=== PATIENT | female | born 1995 | race Caucasian/White ===

== ENCOUNTER 2023-10-29 06:58 | Emergency (ER) | payer MEDICAID, OTHER ==
[~2023-10-29] VITALS: Ht 157.5 cm; Wt 60.0 kg
[2023-10-29 07:04] VITALS: O2SAT 99
[2023-10-29] MEDS: KETOROLAC 30MG/ML VIAL IV STA (07:05)
[2023-10-29 08:31] LABS: DIFFERENTIAL COMMENT 1; HEMATOCRIT. 39.1 % (36.0-48.0); HEMOGLOBIN. 13.1 g/dL (12.0-16.0); MEAN CORPUSCULAR HGB CONC 33.5 g/dL (31.0-37.0); MEAN CORPUSCULAR VOLUME 92.6 fL (81.0-99.0); MEAN PLATELET VOLUME 8.6 fl (7.4-10.4); PLATELET 206 x1000/uL (130-400); RED BLOOD CELL COUNT 4.22 mill/uL (4.2-5.4); RED CELL DISTRIBUTION WIDTH 13.7 % (11.6-14.6)
[2023-10-29 08:36] LABS: CHLORIDE 107 mEq/L (98-107); POTASSIUM 3.3 mEq/L (3.5-5.1); SODIUM 141 mEq/L (136-145)
[2023-10-29 08:37] LABS: CARBON DIOXIDE 26 mEq/L (21-32)
[2023-10-29 08:38] LABS: CALCIUM 9.1 mg/dL (8.7-10.4)
[2023-10-29 08:42] LABS: CREATININE 0.5 mg/dL (0.6-1.0); GLUCOSE 102 mg/dL (70-105); UREA NITROGEN BLOOD 7 mg/dL (9-23)
[2023-10-29 08:44] LABS: PARTIAL THROMBOPLASTIN TIME 26.1 sec (23.4-31.0); PROTHROMBIN TIME 11.4 sec (9.6-11.0)
[2023-10-29 08:48] LABS: CLARITY URINE CLEAR (CLEAR); COLOR URINE YELLOW (YELLOW); GLUCOSE URINE NEGATIVE (NEGATIVE); KETONES URINE NEGATIVE (NEGATIVE); LEUKOCYTE ESTERASE URINE TRACE (NEGATIVE); NITRITE URINE NEGATIVE (NEGATIVE); OCCULT BLOOD URINE 3+ (NEGATIVE); PH URINE 6.5 (4.5-8.0); PROTEIN URINE TRACE (NEGATIVE); SPECIFIC GRAVITY URINE 1.015 (1.005-1.030)
[2023-10-29 08:48] LABS: TROPONIN I HIGH SENSITIVITY < 4 ng/L (3.0-34)
[2023-10-29 08:52] LABS: HCG SCREEN NEGATIVE
[2023-10-29 09:28] LABS: BACTERIA URINE 1+; SQUAMOUS EPITHELIAL CELL URINE 1+ /lpf (RARE/1+); YEAST URINE NONE SEEN
[2023-10-29 10:28] LABS: PLATELET ESTIMATE NORMAL
[2023-10-29] MEDS: MORPHINE SULFATE 4 MG/ML INJ (FOR IV/IM USE) IV ONE (11:04)
[2023-10-29] MEDS: ONDANSETRON HCL 4MG/2ML INJ IV ONE (11:28)
[2023-10-29] MEDS ORDERED: LIDO1ADH23 TP (12:34)
[2023-10-29] MEDS ORDERED: IBUP-2030 MT (12:34)
[2023-10-29] MEDS ORDERED: ACET-2708 MT (12:34)
[2023-10-29 12:53] VITALS: BP 120/63; PULSE 83; RESP 20; TEMP 98.4
== END 2023-10-29 13:07 | disposition home or self-care (01) ==
LOC: ER 07:21
DX: R51.9 Headache, unspecified (principal); I49.9 Cardiac arrhythmia, unspecified; V49.9XXA Car occupant (driver) (passenger) injured in unspecified traffic accident, initial encounter; Y93.89 Activity, other specified; Y92.89 Other specified places as the place of occurrence of the external cause; Y99.8 Other external cause status
CPT/HCPCS: 80048; 81003; 81025; 84703; 83690; 85025; 85610; 85730; 86850; 86900; 86901; 84484; 36415; 71045; 72170; 70450; 71260; 72125; 74177; 93005; 96374; 96375; 99285; J1885; J2405; J2270; Z7610 ×2